=== PATIENT | female | born 1945 | race Caucasian/White ===

== ENCOUNTER 2017-02-12 10:39 | Inpatient (IN) | payer MEDICARE ==
[2017-02-12] MEDS ORDERED: 0.9 % SODIUM CHLORIDE 1000ML 500 ML IV SCH (11:30)
[2017-02-12 12:02] LABS: HEMATOCRIT 34.2 % (35.0-47.0); HEMOGLOBIN 10.7 gm/dl (11.6-16.0); MEAN CELL VOLUME 95.8 fl (81-97); MEAN CORPUSCULAR HGB CONC 31.3 g/dl (32-36); MEAN PLATELET VOLUME 12.2 fl (7.4-10.4); PLATELET COUNT 254 K/uL (130-400); RED BLOOD COUNT 3.57 M/uL (3.80-5.40); RED CELL DISTRIBUTION WIDTH 13.2 % (11.5-14.5); WHITE BLOOD COUNT W/O DIFF 7.7 K/uL (4.2-12.2)
[2017-02-12 12:13] LABS: ANION GAP 7.5 (7-16); CARBON DIOXIDE 23.5 mmol/L (22-30); CREATININE 2.7 mg/dL (0.52-1.04); MEAN CORPUSCULAR HEMOGLOBIN 29.9 pg (27-33); PLATELET ESTIMATE NORMAL (NORMAL)
[2017-02-12] MEDS ORDERED: SPS 15 GM/60 ML PO ONE (12:30)
[2017-02-12 12:43] LABS: THYROID STIMULATING HORMONE 2.32 uIU/ml (0.465-4.68)
[2017-02-12] MEDS ORDERED: ALBUTEROL SULFATE (0.083%) 2.5 MG/3 ML NEB INH ONE (12:54)
[2017-02-12] MEDS ORDERED: ACETAMINOPHEN 325 MG TAB PO ONE (14:40)
[2017-02-12 14:42] LABS: ANION GAP 7.7 (7-16); CARBON DIOXIDE 21.3 mmol/L (22-30); CREATININE 2.3 mg/dL (0.52-1.04)
[2017-02-12 15:50] LABS: URINE APPEARANCE CLEAR; URINE BILIRUBIN NEGATIVE (NEGATIVE); URINE BLOOD NEGATIVE (NEGATIVE); URINE COLOR YELLOW; URINE GLUCOSE (UA) NEGATIVE (NEGATIVE); URINE KETONE NEGATIVE (NEGATIVE); URINE LEUKOCYTE ESTERASE NEGATIVE (NEGATIVE); URINE NITRITE NEGATIVE (NEGATIVE); URINE PROTEIN NEGATIVE (NEGATIVE); URINE UROBILINOGEN 0.2 E.U./dL (0.20 - 1.00)
--- NOTE | 2017-02-12 15:57 | Emergency Department Record ---
History of Present Illness - General Chief Complaint: Hypotension Stated Complaint: BP DROPPED Time Seen by Provider: 02/12/17 11:32 Source: Patient Mode of Arrival: Wheelchair Limitations: No limitations - History of Present Illness Initial Comments: pt was brought over from [facility] care because she had a low bp. she has been lightheaded for several days and has vomited and had diarrhea multiple times. pt has also had vertigo but she has had that in the past. Onset/Timin -: Days(s) Timing: Unsure Description: Lightheadedness History of Same: No Severity: Mild Improves With: Rest Worsens With: Movement, Exertion Associated Symptoms: Other - [place] Coma Scale Eye Response: (4) Open spontaneously Motor Response: (6) Obeys commands Verbal Response: (5) Oriented [place] Total: 15 - Symptoms of Stroke Symptoms of stroke: Vertigo - Related Data Home Medications Medication Instructions Recorded Confirmed Last Taken Aspirin 81 mg PO DAILY 07/20/16 02/12/17 02/12/17 Atorvastatin Calcium 80 mg PO DAILY 07/20/16 07/20/16 02/12/17 Calcium Carbonate/Vitamin D3 1 tab PO DAILY 07/21/16 07/21/16 02/12/17 [Calcium 600 + Vit D Tablet] Citalopram Hydrobromide #26 02/12/17 02/12/17 [Citalopram Hbr] Lisinopril #26 02/12/17 02/12/17 Metoprolol Succinate #60 02/12/17 02/12/17 Sulfamethoxazole/Trimethoprim #20 02/12/17 02/12/17 [Sulfamethoxazole-Tmp Ds Tablet] Previous Rx's Medication Instructions Recorded Chlorthalidone 25 mg PO DAILY #30 tablet 07/21/16 Furosemide [Lasix] 20 mg PO DAILY #30 tablet 07/21/16 Ondansetron [Zofran Odt] 4 mg PO Q8H PRN #20 tab.rapdis 07/21/16 Allergies Allergy/AdvReac Type Severity Reaction Status Date / Time No Known Drug Allergies Allergy Verified 02/12/17 10:52 Travel Screening - Travel/Exposure Within Last 30 Days Have you traveled within the last 30 days?: No - Travel/Exposure Within Last Year Have you traveled outside the [place] in the last year?: No - Additonal Travel Details Have you been exposed to anyone with a communicable illness?: No - Travel Symptoms Symptom Screening: None Review of Systems Reviewed: No additional complaints except as noted below Constitutional: Reports: As per HPI. Denies: Chills, Fever, Malaise, Night sweats, Weakness, Weight change Eyes: Reports: As per HPI. Denies: Eye discharge, Eye pain, Photophobia, Vision change ENT: Reports: As per HPI. Denies: Congestion, Dental pain, Ear pain, Epistaxis , Hearing loss, Throat pain Respiratory: Reports: As per HPI. Denies: Cough, Dyspnea, Hemoptysis, Stridor, Wheezes Cardiovascular: Reports: As per HPI. Denies: Arrhythmia, Chest pain, Dyspnea on exertion, Edema, Murmurs, Orthopnea, Palpitations, Paroxysmal nocturnal dyspnea, Rheumatic Fever, Syncope Endocrine: Reports: As per HPI. Denies: Fatigue, Heat or cold intolerance, Polydipsia, Polyuria Gastrointestinal: Reports: As per HPI. Denies: Abdominal pain, Constipation, Diarrhea, Hematemesis, Hematochezia, Melena, Nausea, Vomiting Genitourinary: Reports: As per HPI. Denies: Abnormal menses, Discharge, Dyspareunia, Dysuria, Frequency, Hematuria, Incontinence, Retention, Urgency Musculoskeletal: Reports: As per HPI. Denies: Arthralgia, Back pain, Gout, Joint swelling, Myalgia, Neck pain Skin: Reports: As per HPI. Denies: Bruising, Change in color, Change in hair/ nails, Lesions, Pruritus, Rash Neurological: Reports: As per HPI. Denies: Abnormal gait, Confusion, Headache, Numbness, Paresthesias, Seizure, Tingling, Tremors, Vertigo, Weakness Psychiatric: Reports: As per HPI. Denies: Anxiety, Auditory hallucinations, Depression, Homicidal thoughts, Suicidal thoughts, Visual hallucinations Hematological/Lymphatic: Reports: As per HPI. 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) - NEURO Hx Neuro Disorders: Yes Hx Dizziness: Yes (hx vertigo) - GI Hx GI Disorders: No - Hx Genitourinary Disorders: No Comment:: hx stress/urge incontience - ENDOCRINE Hx Endocrine Disorders: No - MUSCULOSKELETAL Hx Musculoskeletal Disorders: No Hx Arthritis: Yes (hx of injections in cervical area) - PSYCH Hx Psych Problems: No Hx Anxiety: Yes Hx Depression: Yes - HEMATOLOGY/ONCOLOGY Hx Hematology/Oncology Disorders: No Family Medical History Any Significant Family History?: Yes Hx Cancer: Father *Cancer Comment: lung Hx Heart Disease: Brother/Sister Physical Exam - General General Appearance: Alert, Oriented x3, Cooperative, Mild distress - Head Head exam: Normal inspection - Eye Eye exam: Normal appearance, PERRL, EOMI Pupils: Normal accommodation - ENT ENT exam: Normal exam, Mucous membranes dry, Normal external ear exam, Normal orophraynx, TM's normal bilaterally Ear exam: Normal external inspection. negative: External canal tenderness Nasal Exam: Normal inspection. negative: Discharge, Sinus tenderness Mouth exam: Normal external inspection, Tongue normal Teeth exam: Normal inspection. negative: Dental caries Throat exam: Normal inspection. negative: Tonsillar erythema, Tonsillar exudate - Neck Neck exam: Normal inspection, Full ROM. negative: Tenderness - Respiratory Respiratory exam: Normal lung sounds bilaterally. negative: Respiratory distress - Cardiovascular Cardiovascular Exam: Regular rate, Normal rhythm, Normal heart sounds - GI/Abdominal GI/Abdominal exam: Soft, Normal bowel sounds. negative: Tenderness - Rectal Rectal exam: Deferred - exam: Deferred - Extremities Extremities exam: Normal inspection, Full ROM, Normal capillary refill. negative: Tenderness - Back Back exam: Reports: Normal inspection, Full ROM. Denies: Muscle spasm, Rash noted, Tenderness - Neurological Neurological exam: Alert, CN II-XII intact, Normal gait, Oriented X3 - Psychiatric Psychiatric exam: Normal affect, Normal mood - Skin Skin exam: Dry, Intact, Normal color, Warm Course Vital Signs 02/12/17 02/12/17 02/12/17 10:56 11:10 11:30 Temperature 98.2 F Pulse Rate 72 Pulse Rate [ 68 67 [employer] ] Respiratory 18 18 18 Rate Blood Pressure 74/44 Blood Pressure 86/36 83/32 [Left Arm] Pulse Ox 94 L 98 99 02/12/17 02/12/17 02/12/17 11:45 12:00 12:15 Temperature Pulse Rate Pulse Rate [ 67 68 66 [employer]bearer ] Respiratory 18 18 18 Rate Blood Pressure Blood Pressure 81/38 87/39 93/66 [Left Arm] Pulse Ox 99 99 99 02/12/17 13:03 Temperature Pulse Rate 83 Pulse Rate [ [employer]bearer ] Respiratory 16 Rate Blood Pressure Blood Pressure [Left Arm] Pulse Ox 93 L - Reevaluation(s) Reevaluation #1: 02/12/17 15:58 pt is improving. Reevaluation #2: 02/12/17 16:55 pt is doing better. d/w rosalina who will do orders on floor Medical Decision Making - Lab Data Result diagrams: 02/12/17 11:15 02/12/17 14:25 Lab Results 02/12/17 02/12/17 02/12/17 Range/Units 11:15 11:15 14:25 WBC 7.7 (4.2-12.2) K/uL RBC 3.57 L (3.80-5.40) M/uL Hgb 10.7 L (11.6-16.0) gm/dl Hct 34.2 L (35.0-47.0) % MCV 95.8 (81-97) fl MCH 29.9 (27-33) pg MCHC 31.3 L (32-36) g/dl RDW 13.2 (11.5-14.5) % Plt Count 254 (130-400) K/uL MPV 12.2 H (7.4-10.4) fl Neutrophils % 84.0 H (47-80) % Lymphocytes % 7.0 L (16-45) % Monocytes % 8.0 (0-9) % Eosinophils % 1.0 (0-6) % Basophils % Not Reportable Platelet Estimate Normal (NORMAL) RBC Morphology Normal Sodium 135 L 135 L (136-145) mmol/L Potassium 6.3 H* 5.3 H (3.5-5.1) mmol/L Chloride 104 106 (98-107) mmol/L Carbon Dioxide 23.5 21.3 L (22-30) mmol/L Anion Gap 7.5 7.7 (7-16) BUN 42 H 37 H (7-17) mg/dL Creatinine 2.7 H 2.3 H (0.52-1.04) mg/dL Estimated GFR 18 22 ml/min Random Glucose 107 106 (70-110) mg/dL Calcium 9.2 8.7 (8.5-10.1) mg/dL TSH 2.32 (0.465-4.68) uIU/ml Disposition Disposition: Admit Clinical Impression: Acute renal insufficiency, Dehydration, Vomiting and diarrhea Hypotension Qualifiers: Hypotension type: orthostatic hypotension Qualified Code(s): I95.1 - Orthostatic hypotension Disposition: Still a Patient at [facility] Decision to Admit: Admit from ER Decision to Admit Date: 02/12/17 Decision to Admit Time: 16:00
[2017-02-12] MEDS ORDERED: SODIUM CHLORIDE 0.9% 500 ML IV SCH (17:00)
[2017-02-12] MEDS ORDERED: 0.9 % SODIUM CHLORIDE 1000ML 1,000 ML IV PRN (17:16)
--- NOTE | 2017-02-12 17:30 | Emergency Department Record ---
History of Present Illness - General Chief Complaint: Hypotension Stated Complaint: BP DROPPED Time Seen by Provider: 02/12/17 11:32 Source: Patient Mode of Arrival: Wheelchair Limitations: No limitations - History of Present Illness Onset/Timin -: Days(s) Timing: Unsure Description: Lightheadedness History of Same: No Severity: Mild Improves With: Rest Worsens With: Movement, Exertion Associated Symptoms: Other - [place] Coma Scale Eye Response: (4) Open spontaneously Motor Response: (6) Obeys commands Verbal Response: (5) Oriented [place] Total: 15 - Symptoms of Stroke Symptoms of stroke: Vertigo - Related Data Home Medications Medication Instructions Recorded Confirmed Last Taken Aspirin 81 mg PO DAILY 07/20/16 02/12/17 02/12/17 Atorvastatin Calcium 80 mg PO DAILY 07/20/16 07/20/16 02/12/17 Calcium Carbonate/Vitamin D3 1 tab PO DAILY 07/21/16 07/21/16 02/12/17 [Calcium 600 + Vit D Tablet] Citalopram Hydrobromide #26 02/12/17 02/12/17 [Citalopram Hbr] Lisinopril #26 02/12/17 02/12/17 Metoprolol Succinate #60 02/12/17 02/12/17 Sulfamethoxazole/Trimethoprim #20 02/12/17 02/12/17 [Sulfamethoxazole-Tmp Ds Tablet] Previous Rx's Medication Instructions Recorded Chlorthalidone 25 mg PO DAILY #30 tablet 07/21/16 Furosemide [Lasix] 20 mg PO DAILY #30 tablet 07/21/16 Ondansetron [Zofran Odt] 4 mg PO Q8H PRN #20 tab.rapdis 07/21/16 Allergies Allergy/AdvReac Type Severity Reaction Status Date / Time No Known Drug Allergies Allergy Verified 02/12/17 10:52 Travel Screening - Travel/Exposure Within Last 30 Days Have you traveled within the last 30 days?: No - Travel/Exposure Within Last Year Have you traveled outside the [place] in the last year?: No - Additonal Travel Details Have you been exposed to anyone with a communicable illness?: No - Travel Symptoms Symptom Screening: None Review of Systems Constitutional: Reports: As per HPI. Denies: Chills, Fever, Malaise, Night sweats, Weakness, Weight change Eyes: Reports: As per HPI. Denies: Eye discharge, Eye pain, Photophobia, Vision change ENT: Reports: As per HPI. Denies: Congestion, Dental pain, Ear pain, Epistaxis , Hearing loss, Throat pain Respiratory: Reports: As per HPI. Denies: Cough, Dyspnea, Hemoptysis, Stridor, Wheezes Cardiovascular: Reports: As per HPI. Denies: Arrhythmia, Chest pain, Dyspnea on exertion, Edema, Murmurs, Orthopnea, Palpitations, Paroxysmal nocturnal dyspnea, Rheumatic Fever, Syncope Endocrine: Reports: As per HPI. Denies: Fatigue, Heat or cold intolerance, Polydipsia, Polyuria Gastrointestinal: Reports: As per HPI. Denies: Abdominal pain, Constipation, Diarrhea, Hematemesis, Hematochezia, Melena, Nausea, Vomiting Genitourinary: Reports: As per HPI. Denies: Abnormal menses, Discharge, Dyspareunia, Dysuria, Frequency, Hematuria, Incontinence, Retention, Urgency Musculoskeletal: Reports: As per HPI. Denies: Arthralgia, Back pain, Gout, Joint swelling, Myalgia, Neck pain Skin: Reports: As per HPI. Denies: Bruising, Change in color, Change in hair/ nails, Lesions, Pruritus, Rash Neurological: Reports: As per HPI. Denies: Abnormal gait, Confusion, Headache, Numbness, Paresthesias, Seizure, Tingling, Tremors, Vertigo, Weakness Psychiatric: Reports: As per HPI. Denies: Anxiety, Auditory hallucinations, Depression, Homicidal thoughts, Suicidal thoughts, Visual hallucinations Hematological/Lymphatic: Reports: As per HPI. 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) - NEURO Hx Neuro Disorders: Yes Hx Dizziness: Yes (hx vertigo) - GI Hx GI Disorders: No - Hx Genitourinary Disorders: No Comment:: hx stress/urge incontience - ENDOCRINE Hx Endocrine Disorders: No - MUSCULOSKELETAL Hx Musculoskeletal Disorders: No Hx Arthritis: Yes (hx of injections in cervical area) - PSYCH Hx Psych Problems: No Hx Anxiety: Yes Hx Depression: Yes - HEMATOLOGY/ONCOLOGY Hx Hematology/Oncology Disorders: No Family Medical History Any Significant Family History?: Yes Hx Cancer: Father *Cancer Comment: lung Hx Heart Disease: Brother/Sister Physical Exam - General Limitations: No limitations Course Vital Signs 02/12/17 02/12/17 02/12/17 10:56 11:10 11:30 Temperature 98.2 F Pulse Rate 72 Pulse Rate [ 68 67 [employer] ] Respiratory 18 18 18 Rate Blood Pressure 74/44 Blood Pressure 86/36 83/32 [Left Arm] Pulse Ox 94 L 98 99 02/12/17 02/12/17 02/12/17 11:45 12:00 12:15 Temperature Pulse Rate Pulse Rate [ 67 68 66 [employer] ] Respiratory 18 18 18 Rate Blood Pressure Blood Pressure 81/38 87/39 93/66 [Left Arm] Pulse Ox 99 99 99 02/12/17 02/12/17 02/12/17 13:03 15:30 17:02 Temperature Pulse Rate 83 86 Pulse Rate [ 68 [employer] ] Respiratory 16 20 20 Rate Blood Pressure 100/40 Blood Pressure 117/69 [Left Arm] Pulse Ox 93 L 95 98 Medical Decision Making - Management Options MDM Management: Additional Work-up Planned (e.g. ADM/Transfer/OP Study) - Data Complexity MDM Data: Labs Ordered and/or Reviewed, X-Ray Ordered and/or Reviewed, EKG Ordered and/or Reviewed - Lab Data Result diagrams: 02/12/17 11:15 02/12/17 14:25 Lab Results 02/12/17 02/12/17 02/12/17 Range/Units 11:15 11:15 14:25 WBC 7.7 (4.2-12.2) K/uL RBC 3.57 L (3.80-5.40) M/uL Hgb 10.7 L (11.6-16.0) gm/dl Hct 34.2 L (35.0-47.0) % MCV 95.8 (81-97) fl MCH 29.9 (27-33) pg MCHC 31.3 L (32-36) g/dl RDW 13.2 (11.5-14.5) % Plt Count 254 (130-400) K/uL MPV 12.2 H (7.4-10.4) fl Neutrophils % 84.0 H (47-80) % Lymphocytes % 7.0 L (16-45) % Monocytes % 8.0 (0-9) % Eosinophils % 1.0 (0-6) % Basophils % Not Reportable Platelet Estimate Normal (NORMAL) RBC Morphology Normal Sodium 135 L 135 L (136-145) mmol/L Potassium 6.3 H* 5.3 H (3.5-5.1) mmol/L Chloride 104 106 (98-107) mmol/L Carbon Dioxide 23.5 21.3 L (22-30) mmol/L Anion Gap 7.5 7.7 (7-16) BUN 42 H 37 H (7-17) mg/dL Creatinine 2.7 H 2.3 H (0.52-1.04) mg/dL Estimated GFR 18 22 ml/min Random Glucose 107 106 (70-110) mg/dL Calcium 9.2 8.7 (8.5-10.1) mg/dL TSH 2.32 (0.465-4.68) uIU/ml Urine Color Urine Appearance Urine pH (5.0-8.0) Ur Specific [employer] (1.002-1.030) Urine Protein (NEGATIVE) Urine Glucose (UA) (NEGATIVE) Urine Ketones (NEGATIVE) Urine Blood (NEGATIVE) Urine Nitrite (NEGATIVE) Urine Bilirubin (NEGATIVE) Urine Urobilinogen (0.20 - 1.00) E.U./dL Ur Leukocyte Esterase (NEGATIVE) 02/12/17 Range/Units 15:40 WBC (4.2-12.2) K/uL RBC (3.80-5.40) M/uL Hgb (11.6-16.0) gm/dl Hct (35.0-47.0) % MCV (81-97) fl MCH (27-33) pg MCHC (32-36) g/dl RDW (11.5-14.5) % Plt Count (130-400) K/uL MPV (7.4-10.4) fl Neutrophils % (47-80) % Lymphocytes % (16-45) % Monocytes % (0-9) % Eosinophils % (0-6) % Basophils % Platelet Estimate (NORMAL) RBC Morphology Sodium (136-145) mmol/L Potassium (3.5-5.1) mmol/L Chloride (98-107) mmol/L Carbon Dioxide (22-30) mmol/L Anion Gap (7-16) BUN (7-17) mg/dL Creatinine (0.52-1.04) mg/dL Estimated GFR ml/min Random Glucose (70-110) mg/dL Calcium (8.5-10.1) mg/dL TSH (0.465-4.68) uIU/ml Urine Color Yellow Urine Appearance Clear Urine pH 6.0 (5.0-8.0) Ur Specific [employer] 1.015 (1.002-1.030) Urine Protein Negative (NEGATIVE) Urine Glucose (UA) Negative (NEGATIVE) Urine Ketones Negative (NEGATIVE) Urine Blood Negative (NEGATIVE) Urine Nitrite Negative (NEGATIVE) Urine Bilirubin Negative (NEGATIVE) Urine Urobilinogen 0.2 (0.20 - 1.00) E.U./dL Ur Leukocyte Esterase Negative (NEGATIVE) - EKG Data -: EKG Interpreted by Oh EKG: Abnormal EKG (rbbb) Disposition Clinical Impression: Acute renal insufficiency, Dehydration, Vomiting and diarrhea Hypotension Qualifiers: Hypotension type: orthostatic hypotension Qualified Code(s): I95.1 - Orthostatic hypotension Disposition: Still a Patient at [facility]
[2017-02-12] MEDS: 0.9 % SODIUM CHLORIDE 1000ML 1,000 ML IV PRN (21:14)
[2017-02-12] MEDS: ONDANSETRON HCL IV 4 MG/2 ML VIAL IVP PRN (21:16)
[2017-02-13] MEDS: 0.9 % SODIUM CHLORIDE 1000ML 1,000 ML IV PRN (06:02)
[2017-02-13 06:25] LABS: BASO % 0.3 % (0-6); EOS % 3.8 % (0-6); GRAN % 60.6 % (47-80); HEMATOCRIT 30.1 % (35.0-47.0); HEMOGLOBIN 9.5 gm/dl (11.6-16.0); LYMPH % 26.3 % (16-45); MEAN CELL VOLUME 97.1 fl (81-97); MEAN CORPUSCULAR HEMOGLOBIN 30.6 pg (27-33); MEAN CORPUSCULAR HGB CONC 31.6 g/dl (32-36); MEAN PLATELET VOLUME 11.3 fl (7.4-10.4); PLATELET COUNT 205 K/uL (130-400); RED CELL DISTRIBUTION WIDTH 13.4 % (11.5-14.5); WHITE BLOOD COUNT W/O DIFF 6.1 K/uL (4.2-12.2)
[2017-02-13 06:40] LABS: ALB/GLOB RATIO 1.1 (1.1-1.8); ALBUMIN 3.4 gm/dL (3.5-5.0); ANION GAP 5.7 (7-16); BILIRUBIN,TOTAL 0.32 mg/dL (0.2-1.3); CARBON DIOXIDE 21.3 mmol/L (22-30); CREATININE 1.7 mg/dL (0.52-1.04); TOTAL PROTEIN 6.5 gm/dL (6.3-8.2)
--- NOTE | 2017-02-13 07:15 | CT SCAN REPORT ---
EXAM: HEAD CT WITHOUT CONTRAST HISTORY: INTERMITTENT POSTERIOR HEADACHE FOR TWO WEEKS, DIZZINESS, VERTIGO, PRIOR STROKE OCTOBER OF 2015. TECHNIQUE: Contiguous axial images from the cerebral convexities to the foramen magnum were obtained without contrast. Comparison: Head CT 01/08/12. Hand dominance: Right. FINDINGS: Focal encephalomalacia in the subcortical white matter of the vida frontal lobe measuring 2 cm consistent with remote infarct. No acute intracranial hemorrhage, mass effect, or midline shift. No CT evidence of acute infarct. Mild decreased attenuation in the periventricular white matter at the cerebral hemispheres. The ventricles, basal cisterns, and sulci are within normal limits. The osseous structures are unremarkable. Scleral band on the left. The paranasal sinuses are unremarkable. IMPRESSION: 1. NO ACUTE INTRACRANIAL PROCESS. 2. SMALL REMOTE LEFT FRONTAL CORTICAL INFARCT NOT SEEN PREVIOUSLY. 3. MILD CHRONIC SMALL VESSEL ISCHEMIC CHANGE. JOB NUMBER: [id number] MTDD
--- NOTE | 2017-02-13 07:17 | RADIOLOGY REPORT ---
EXAM: CHEST, TWO VIEWS HISTORY: DIFFICULTY BREATHING. TECHNIQUE: Frontal and lateral views of the chest were obtained. Comparison: Prior chest from 07/20/16. FINDINGS: The heart size is normal. Osteopenia. Atheromatous change of the thoracic aorta. Biapical pleural thickening. Calcified granulomata in the lung apices. The lungs are otherwise clear. No pneumothorax. IMPRESSION: NO ACUTE CARDIOPULMONARY PROCESS. JOB NUMBER: [id number] MTDD
[2017-02-13] MEDS ORDERED: SPS 15 GM/60 ML PO STA (09:26)
[2017-02-13] MEDS ORDERED: ALBUTEROL SULFATE (0.083%) 2.5 MG/3 ML NEB INH ONE (09:42)
[2017-02-13] MEDS: ENOXAPARIN 40 MG/0.4 ML SYR SC SCH (11:10)
[2017-02-13] MEDS ORDERED: ONDANSETRON HCL IV 4 MG/2 ML VIAL IVP PRN (14:54)
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
[2017-02-13 16:15] LABS: BASO % 0.2 % (0-6); EOS % 2.4 % (0-6); GRAN % 73.6 % (47-80); HEMATOCRIT 28.8 % (35.0-47.0); HEMOGLOBIN 8.9 gm/dl (11.6-16.0); MEAN CORPUSCULAR HGB CONC 30.9 g/dl (32-36); MEAN PLATELET VOLUME 10.6 fl (7.4-10.4); MONO % 9.8 % (0-9); PLATELET COUNT 188 K/uL (130-400); RED BLOOD COUNT 2.94 M/uL (3.80-5.40); RED CELL DISTRIBUTION WIDTH 13.4 % (11.5-14.5); WHITE BLOOD COUNT W/O DIFF 8.3 K/uL (4.2-12.2)
[2017-02-13 16:18] LABS: MEAN CORPUSCULAR HEMOGLOBIN 30.2 pg (27-33)
[2017-02-13] MEDS: LISINOPRIL 20 MG TABLET PO SCH (16:20)
[2017-02-13] MEDS: ASPIRIN 81 MG CHEWABLE TABLET PO SCH (16:21)
[2017-02-13] MEDS: METOPROLOL SUCC 25 MG TAB.ER PO SCH (16:23)
[2017-02-13 16:30] LABS: ALB/GLOB RATIO 1.1 (1.1-1.8); ALBUMIN 3.4 gm/dL (3.5-5.0); ANION GAP 6.4 (7-16); BILIRUBIN,TOTAL 0.34 mg/dL (0.2-1.3); CARBON DIOXIDE 22.6 mmol/L (22-30); CREATININE 1.3 mg/dL (0.52-1.04); TOTAL PROTEIN 6.5 gm/dL (6.3-8.2)
[2017-02-13] MEDS ORDERED: ACETAMINOPHEN 500 MG TABLET PO PRN (17:11)
[2017-02-13] MEDS: ONDANSETRON HCL IV 4 MG/2 ML VIAL IVP PRN (20:47)
[2017-02-13 21:21] LABS: CKMB 0.4 ug/L (0-6)
[2017-02-13 21:22] LABS: TROPONIN I < 0.012 ng/mL (0.00-0.034)
[2017-02-13] MEDS ORDERED: ATORVASTATIN 20 MG TABLET PO SCH (22:00)
[2017-02-13 22:20] LABS: STOOL FOR OCCULT BLOOD #1 NEGATIVE (NEGATIVE)
[2017-02-14 05:39] LABS: CKMB 0.6 ug/L (0-6)
[2017-02-14 05:59] LABS: TROPONIN I < 0.012 ng/mL (0.00-0.034)
[2017-02-14 09:31] LABS: ALBUMIN 2.9 gm/dL (3.5-5.0); ANION GAP 5.8 (7-16); BILIRUBIN,TOTAL 0.44 mg/dL (0.2-1.3); CARBON DIOXIDE 25.2 mmol/L (22-30); CREATININE 1.2 mg/dL (0.52-1.04); TOTAL PROTEIN 5.8 gm/dL (6.3-8.2)
[2017-02-14 09:33] LABS: BASO % 0.4 % (0-6); EOS % 4.9 % (0-6); GRAN % 64.1 % (47-80); HEMATOCRIT 29.4 % (35.0-47.0); HEMOGLOBIN 9.1 gm/dl (11.6-16.0); LYMPH % 20.2 % (16-45); MEAN CELL VOLUME 98.7 fl (81-97); MEAN CORPUSCULAR HEMOGLOBIN 30.5 pg (27-33); MEAN PLATELET VOLUME 12.4 fl (7.4-10.4); MONO % 10.4 % (0-9); PLATELET COUNT 193 K/uL (130-400); RED BLOOD COUNT 2.98 M/uL (3.80-5.40); RED CELL DISTRIBUTION WIDTH 13.4 % (11.5-14.5); WHITE BLOOD COUNT W/O DIFF 7.7 K/uL (4.2-12.2)
[2017-02-14] MEDS ORDERED: CALCIUM CARB/VITAMIN D 500MG/200IU PO SCH (10:00)
[2017-02-14] MEDS: LISINOPRIL 20 MG TABLET PO SCH (10:08)
[2017-02-14] MEDS: ASPIRIN 81 MG CHEWABLE TABLET PO SCH (10:09)
[2017-02-14] MEDS: METOPROLOL SUCC 25 MG TAB.ER PO SCH (10:09)
[2017-02-14] MEDS: ENOXAPARIN 40 MG/0.4 ML SYR SC SCH (10:10)
--- NOTE | 2017-02-14 10:24 | Discharge Summary ---
Providers Discharge Summary Date: 02/14/17 Date of admission: 02/12/17 17:08 Expected Date of Discharge: 02/14/17 Attending physician: EDGAR MENG Primary care physician: WILMA ALSTON M.D. Physical Exam - Vital Signs Vital Signs: Vital Signs - Last 24 Hrs Temp Pulse Resp BP Pulse Ox 02/14/17 09:33 99.2 F 78 16 117/45 97 02/14/17 05:22 98.5 F 76 18 106/48 96 02/13/17 20:57 98.7 F 80 18 113/50 96 02/13/17 14:00 99.9 F H 90 18 122/56 98 - General General Appearance: Alert, Oriented x3, Cooperative Limitations: No limitations - Head Head exam: Normal inspection - Eye Eye exam: Normal appearance, PERRL, EOMI Pupils: Normal accommodation - ENT ENT exam: Normal exam, Mucous membranes dry, Normal external ear exam, Normal orophraynx, TM's normal bilaterally Ear exam: Normal external inspection. negative: External canal tenderness Nasal Exam: Normal inspection. negative: Discharge, Sinus tenderness Mouth exam: Normal external inspection, Tongue normal Teeth exam: Normal inspection. negative: Dental caries Throat exam: Normal inspection. negative: Tonsillar erythema, Tonsillar exudate - Neck Neck exam: Normal inspection, Full ROM. negative: Tenderness - Respiratory Respiratory exam: Normal lung sounds bilaterally. negative: Respiratory distress - Cardiovascular Cardiovascular Exam: Regular rate, Normal rhythm, Normal heart sounds Peripheral Pulses: 3+: Dorsalis Pedis (R), Dorsalis Pedis (L) - GI/Abdominal GI/Abdominal exam: Soft, Normal bowel sounds. negative: Tenderness - Rectal Rectal exam: Deferred - exam: Deferred - Extremities Extremities exam: Normal inspection, Full ROM, Normal capillary refill, Pedal edema (trace bilat). negative: Tenderness - Back Back exam: Reports: Normal inspection, Full ROM. Denies: CVA tenderness (R), CVA tenderness (L), Muscle spasm, Rash noted, Tenderness - Neurological Neurological exam: Alert, CN II-XII intact, Normal gait, Oriented X3 - Psychiatric Psychiatric exam: Normal affect, Normal mood - Skin Skin exam: Dry, Intact, Normal color, Warm Hospitalization - Hospitalization Admission Diagnosis: Hypotension. Dehydration. Hyperkalemia - Problem List/Discharge Diagnosis (1) JERICHO (acute kidney injury) Status: Acute Base Code: N17.9 - ACUTE KIDNEY FAILURE, UNSPECIFIED Comment: 02/14/17- 72 y/o female admitted for hypotension, dehydration. No prevous hx renal insufficiency. Suspect etiology recent episode of nausea, vomiting, diarrhea with new diagnosis of UTI with Bactrim use 1 week ago. Renal function has significanty improved with normalization of BUN, near normalization fo Cr with aggressive IV hydration in the ED along with continued gentle hydration since admission to the floor. Remains afebrile, WBC normal - At discharge BUN normalized, Cr 1.2, K 4.7 - Hgb noted decline since IV hydration began, suspect initial read inaccurate due to hemoconcentration, patient baseline unknown, no known history of anemia. - had no symptoms of CHF exacerbation - urine culture pending to r/o atypical bacterium - will resume Lasix 20mg QD at time of discharge - follow up PCP 1 week (2) Dehydration Status: Acute Base Code: E86.0 - DEHYDRATION Comment: 02/14/17- 72 y/o female admitted for hypotension, dehydration. No prevous hx renal insufficiency. Suspect etiology recent episode of nausea, vomiting, diarrhea with new diagnosis of UTI with Bactrim use 1 week ago. Renal function has significanty improved with normalization of BUN, near normalization fo Cr with aggressive IV hydration in the ED along with continued gentle hydration since admission to the floor. Remains afebrile, WBC normal - resolved - follow up PCP 1 week (3) Hypotension Status: Acute Discharge Diagnosis: Hypotension type: orthostatic hypotension Qualified Code(s): I95.1 - Orthostatic hypotension Base Code: I95.9 - HYPOTENSION, UNSPECIFIED Comment: 02/14/17- hypotension 2nd dehydration. Infectious process ruled out. BP significantly improved with IV hydration - follow up PCP 1 week (4) EKG abnormalities Status: Acute Base Code: R94.31 - ABNORMAL ELECTROCARDIOGRAM [ECG] [EKG] Comment: 02/14/17- Noted EKG in ED with ST elevation, has been asymptomatic. Telemetry showing inverted T waves. No known hx pulmonary disease - cardiac enzymes x 3 negative - D-Dimer elevated 1.95 - CTA of chest negative for PE. 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 Expect diarrhea to worsen with 2 doses SPS given for hyperkalemia - stool polys negative - stool culture pending - stool for c-diff negative - diarrhea resolved - follow up PCP 1 week (6) Anemia Status: Acute Base Code: D64.9 - ANEMIA, UNSPECIFIED Comment: 02/14/17- No known history of anemia, no overt signs acute blood loss. Acute decrease from admission Hgb likely dehydration related - stool x 3 occult blood (first one negative) - Hgb at discharge 9.1- this is likely baseline, is asyptomatic - follow up PCP 1 week (7) Full code status Status: Acute Base Code: Z78.9 - OTHER SPECIFIED HEALTH STATUS Comment: 02/14/17: patient is full code (8) DVT prophylaxis Status: Acute Base Code: [id number] - Comment: 02/14/17- moderate risk due to age and past cardiac history - Lovenox 40mg QD - Hospitalization Course Disposition: Home, Self-Care Hospital Course: 72 y/o female with CC dizziness and weakness admitted for hypotension, dehydration, hyperkalemia. PMX: vertigo, CVA Oct 2016 with left carotid stent placement at that time, CHF, [place] x 2 12/2015, UTI, stress/urge incontinence, arthritis, anxiety and depression. Prior to arrival to ED reports 2 week history of persistent vertigo associated with diarrhea, nausea and 2 episodes of vomiting. Last week followed up with PCP and was diagnosed with a UTI and started on Bactrim. Diarrhea and nausea had resolved at the time of her follow up with PCP. Yesterday developed a temperature of 101, felt increasingly dizzy and weak with return of nausea and diarreha and came to [facility]. BP at [facility] 70/30 and sent directly to [facility] ED. While in the ED BP 74/44. K 6.3, Na 135, BUN 42, Cr 2.7. CXR negative for acute process, EKG with ST segment elevation, CT head negative for acute process, left frontal cortical infarct new from previous study 2011. Patient given 1L 0.9NS, albuterol neb and 15gm SPS- BP improved to 117/69, BUN improved to 37, creatinine improved to 2.3, K improved to 5.3. Transferred to floor for IV hydration. 02/13/17- resting comfortably in bed, A&O x3, in no distress, neuro check WNL, reports has had an increase of diarrhea since being given Kayexelate. Denies nausea, chest pain, dysuria. Reports has 2 days left of Bactrim yet to take to complete treatment for UTI. 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 [Assistant Finance Director] .Continuous 02/13/17 12:18 EKG NOW Abnormal Labs: Abnormal Lab Results 02/13/17 02/13/17 02/13/17 Range/Units 06:05 06:05 12:40 RBC 3.10 L (3.80-5.40) M/uL Hgb 9.5 L (11.6-16.0) gm/dl Hct 30.1 L (35.0-47.0) % MCV 97.1 H (81-97) fl MCHC 31.6 L (32-36) g/dl MPV 11.3 H (7.4-10.4) fl Lymphocytes % (16-45) % Monocytes % (0-9) % D-Dimer 1.95 H (0-0.59) mg/L FEU Potassium 5.2 H (3.5-5.1) mmol/L Chloride 110 H (98-107) mmol/L Carbon Dioxide 21.3 L (22-30) mmol/L Anion Gap 5.7 L (7-16) BUN 23 H (7-17) mg/dL Creatinine 1.7 H (0.52-1.04) mg/dL Calcium 8.2 L (8.5-10.1) mg/dL AST (14-36) U/L Total Protein (6.3-8.2) gm/dL Albumin 3.4 L (3.5-5.0) gm/dL Albumin/Globulin Ratio (1.1-1.8) 02/13/17 02/13/17 02/14/17 Range/Units 16:11 16:11 04:45 RBC 2.94 L 2.98 L (3.80-5.40) M/uL Hgb 8.9 L 9.1 L (11.6-16.0) gm/dl Hct 28.8 L 29.4 L (35.0-47.0) % MCV 98.0 H 98.7 H (81-97) fl MCHC 30.9 L 31.0 L (32-36) g/dl MPV 10.6 H 12.4 H (7.4-10.4) fl Lymphocytes % 14.0 L (16-45) % Monocytes % 9.8 H 10.4 H (0-9) % D-Dimer (0-0.59) mg/L FEU Potassium (3.5-5.1) mmol/L Chloride (98-107) mmol/L Carbon Dioxide (22-30) mmol/L Anion Gap 6.4 L (7-16) BUN (7-17) mg/dL Creatinine 1.3 H (0.52-1.04) mg/dL Calcium 8.0 L (8.5-10.1) mg/dL AST 42 H (14-36) U/L Total Protein (6.3-8.2) gm/dL Albumin 3.4 L (3.5-5.0) gm/dL Albumin/Globulin Ratio (1.1-1.8) 02/14/17 Range/Units 04:45 RBC (3.80-5.40) M/uL Hgb (11.6-16.0) gm/dl Hct (35.0-47.0) % MCV (81-97) fl MCHC (32-36) g/dl MPV (7.4-10.4) fl Lymphocytes % (16-45) % Monocytes % (0-9) % D-Dimer (0-0.59) mg/L FEU Potassium (3.5-5.1) mmol/L Chloride 110 H (98-107) mmol/L Carbon Dioxide (22-30) mmol/L Anion Gap 5.8 L (7-16) BUN (7-17) mg/dL Creatinine 1.2 H (0.52-1.04) mg/dL Calcium (8.5-10.1) mg/dL AST 39 H (14-36) U/L Total Protein 5.8 L (6.3-8.2) gm/dL Albumin 2.9 L (3.5-5.0) gm/dL Albumin/Globulin Ratio 1.0 L (1.1-1.8) Condition at Discharge: (2) Stable Discharge Medications - Discharge Medications Prescriptions: Meclizine HCl [Antivert] 25 mg PO Q8H PRN #30 tablet PRN Reason: Nausea Home Medications: Ambulatory Orders Aspirin 81 mg PO DAILY 07/20/16 [Last Taken 02/12/17] Calcium Carbonate/Vitamin D3 [Calcium 600 + Vit D Tablet] 1 tab PO DAILY [Last Taken 02/12/17] Furosemide [Lasix] 20 mg PO DAILY #30 tablet 07/21/16 [Last Taken 02/12/17] Ondansetron [Zofran Odt] 4 mg PO Q8H PRN #20 tab.rapdis 07/21/16 [Last Taken ] Atorvastatin Calcium 80 mg PO DAILY 02/12/17 [Last Taken 02/12/17] Citalopram Hydrobromide [Citalopram HBr] 40 mg PO DAILY #26 02/12/17 [Last Taken 02/12/17] Lisinopril [Zestril] 20 mg PO DAILY 02/12/17 [Last Taken Unknown] Metoprolol Succinate 25 mg PO DAILY #60 02/12/17 [Last Taken 02/12/17] Aspirin Chewable 81 mg PO DAILY tab.chew 02/14/17 [Last Taken Unknown] Meclizine HCl [Antivert] 25 mg PO Q8H PRN #30 tablet 02/14/17 [Last Taken Unknown] Discharge Plan - Discharge Instructions Activity at Discharge: Increase Activity as Tolerated Diet at Discharge: Low Salt Diet Instructions: Meclizine (By mouth), Acute Kidney Injury (DC), Dizziness (GEN), Acute Nausea and Vomiting, 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
--- NOTE | 2017-02-16 07:46 | CT ANGIOGRAM REPORT ---
EXAM: CTA OF THE CHEST HISTORY: PATIENT HAS DIZZINESS. TECHNIQUE: Serial axial CTA scan of the chest was performed at 1.25 mm intervals from the thoracic inlet to the dome of the diaphragm following the intravenous administration of 72 ml of Omnipaque 350. Comparison: CTA of the chest dated 07/20/16 is provided. FINDINGS: The thoracic inlet is unremarkable. The lung windows demonstrate no CT evidence of a focal infiltrate or pleural effusion. Linear scarring at the bilateral costophrenic angles are identified. The visualized heart size and contour is within normal limits. The thoracic aorta is unremarkable. There is no CTA evidence of a filling defect within the primary and secondary pulmonary vascular tree to suggest a pulmonary embolus. 1 cm in short axis diameter lymph node within the subcarinal space. Neoplastic etiology cannot be excluded. PET scan can be obtained for further evaluation. The chest wall is unremarkable. Axial images through the upper abdomen demonstrate the visualized liver, spleen , pancreas, and adrenal glands to be unremarkable. Small hiatal hernia is noted. Bone windows demonstrate no CT evidence of a fracture or dislocation of the visualized osseous structures of the abdomen and pelvis. IMPRESSION: 1. NO CTA EVIDENCE OF A PULMONARY EMBOLUS. 2. SMALL HIATAL HERNIA. 3. PROMINENT SUBCARINAL LYMPH NODE. NEOPLASTIC ETIOLOGY CANNOT BE EXCLUDED. PET SCAN CAN BE OBTAINED FOR FURTHER EVALUATION. JOB NUMBER: [id number] MTDD
== END 2017-02-14 13:30 | disposition home or self-care (01) | DRG 641 ==
LOC: ER 10:39 → MEDSURG 17:08
PROVIDERS: ADMIT Family Medicine; ATTEND Family Medicine
DX: E86.0 Dehydration (principal); E87.5 Hyperkalemia; I95.9 Hypotension, unspecified
CPT/HCPCS: 70450; 71020; 71275; 80048; 80053; 81003; 82272; 82553; 84443; 84484; 85025; 85027; 85379; 87040; 87427; 87493; 89055; 93005; 93010; 94640; 96360; 96361; 99285; J1650; J2405; J7030; J7613